=== PATIENT | female | born 1945 | race American Indian/Alaskan Native ===

== ENCOUNTER 2019-04-15 02:50 | Inpatient (IN) | payer MEDICAID, MEDICARE ==
[2019-04-15 03:23] LABS: Basophils # (Auto) 0.1 K/mm3 (0.0-0.1); Basophils % (Auto) 1.4 % (0.0-1.8); Eosinophils # (Auto) 0.1 K/mm3 (0.0-0.4); Eosinophils % (Auto) 1.6 % (0.0-4.3); Hematocrit 37.1 % (30.3-42.9); Hemoglobin 12.7 gm/dl (10.1-14.3); Lymphocytes # (Auto) 2.2 K/mm3 (1.2-5.4); Lymphocytes % (Auto) 40.8 % (13.4-35.0); Mean Corpuscular HGB Conc 34 % (30-34); Mean Corpuscular Volume 88 fl (79-97); Monocytes # (Auto) 0.3 K/mm3 (0.0-0.8); Monocytes % (Auto) 6.4 % (0.0-7.3); Platelet Count 226 K/mm3 (140-440); Red Cell Distribution Width 15.7 % (13.2-15.2)
--- NOTE | 2019-04-15 03:23 | Emergency Department Report ---
ED Dizziness HPI - General Chief Complaint: Dizziness Stated Complaint: DIZZY AND VOMITING Time Seen by Provider: 04/15/19 03:09 Source: patient Mode of arrival: Ambulatory Limitations: No Limitations - History of Present Illness Initial Comments: 74 yo F, hx HTN, presents to ED with complaint of dizziness. Pt states she went to bed at approx 10:30pm, feeling normal. States she awoke from sleep approx 1 hr ago in a sweat. Pt states when she turned over in bed, it felt as if the room was spinning and she felt nauseated. Pt states she attempted to walk to the bathroom and felt off-balance. Grandson brought pt to ER. Pt denies headache, chest pain, SOB, abdominal pain. Pt states prior to going to bed, she ate a [employer] sandwich then took her norvasc, ativan, and a pain pill for arthritis (cannot remember the name). Pt states she takes all 3 medications regularly. Pt states dizziness currently improved. Able to ambulate since arriving in ER. PCP: Apollo PANDA Complaint: dizziness -: hour(s) (1) Timing: awoke with symptoms Description: "room spinning", off-balance History of Same: Yes (4 yrs ago) History of Trauma: No Severity: moderate Improves With: nothing Worsens With: movement Associated Symptoms: diaphoresis. denies: chest pain, confusion, fever/chills, shortness of breath, syncope - Related Data Home Medications Medication Instructions Recorded Confirmed Last Taken Simvastatin 10 mg PO QDAY 06/28/13 06/28/13 Unknown Previous Rx's Medication Instructions Recorded Last Taken Type Hydrocodone Bit/Acetaminophen 1 each PO TID PRN #15 tablet 07/02/13 Unknown Rx [Lortab 5-500 Tablet] amLODIPine [Norvasc] 10 mg PO DAILY #30 tablet 07/02/13 Unknown Rx levoFLOXacin [Levaquin] 500 mg PO QDAY #5 tablet 07/02/13 Unknown Rx Azithromycin [Zithromax Z-TRAY] 250 mg PO DAILY #6 tablet 11/14/13 Unknown Rx Benzonatate [Tessalon Perle] 100 mg PO TID PRN #30 capsule 11/14/13 Unknown Rx Cyclobenzaprine [Flexeril] 10 mg PO TID PRN #15 tablet 11/14/13 Unknown Rx Allergies Allergy/AdvReac Type Severity Reaction Status Date / Time No Known Allergies Allergy Unverified 06/28/13 10:18 ED Review of Systems ROS: Stated complaint: DIZZY AND VOMITING Other details as noted in HPI Comment: All other systems reviewed and negative Constitutional: denies: chills, fever Respiratory: denies: shortness of breath Cardiovascular: denies: chest pain Gastrointestinal: nausea, vomiting. denies: abdominal pain Neurological: vertigo. denies: headache, weakness, numbness ED Past Medical Hx - Past Medical History Previous Medical History?: Yes Hx Hypertension: Yes Hx Arthritis: Yes Hx Seizures: No Hx Dementia: No Hx HIV: No Additional medical history: high chol, mass on kidney currently being worked up at [place] - Surgical History Past Surgical History?: Yes - Social History Smoking Status: Current Every Day Smoker Substance Use Type: None - Medications Home Medications: Home Medications Medication Instructions Recorded Confirmed Last Taken Type Simvastatin 10 mg PO QDAY 06/28/13 06/28/13 Unknown History Hydrocodone Bit/Acetaminophen 1 each PO TID PRN #15 tablet 07/02/13 Unknown Rx [Lortab 5-500 Tablet] amLODIPine [Norvasc] 10 mg PO DAILY #30 tablet 07/02/13 Unknown Rx levoFLOXacin [Levaquin] 500 mg PO QDAY #5 tablet 07/02/13 Unknown Rx Azithromycin [Zithromax Z-RTAY] 250 mg PO DAILY #6 tablet 11/14/13 Unknown Rx Benzonatate [Tessalon Perle] 100 mg PO TID PRN #30 capsule 11/14/13 Unknown Rx Cyclobenzaprine [Flexeril] 10 mg PO TID PRN #15 tablet 11/14/13 Unknown Rx ED Physical Exam - General Limitations: No Limitations General appearance: alert, in no apparent distress - Head Head exam: Present: atraumatic, normocephalic - Eye Eye exam: Present: normal appearance, PERRL, EOMI - ENT ENT exam: Present: mucous membranes moist - Neck Neck exam: Present: normal inspection, full ROM - Respiratory Respiratory exam: Present: normal lung sounds bilaterally. Absent: respiratory distress - Cardiovascular Cardiovascular Exam: Present: regular rate, normal rhythm - GI/Abdominal GI/Abdominal exam: Present: soft. Absent: distended, tenderness - Extremities Exam Extremities exam: Present: normal inspection - Neurological Exam Neurological exam: Present: alert, oriented X3, CN II-XII intact, normal gait, other ([id number] normal, NIHSS=0). Absent: motor sensory deficit - Psychiatric Psychiatric exam: Present: normal affect, normal mood - Skin Skin exam: Present: warm, dry, intact, normal color ED Course Vital Signs 04/15/19 04/15/19 04/15/19 02:53 04:27 04:30 Temperature 97.7 F Pulse Rate 75 66 67 Respiratory 18 11 L 17 Rate Blood Pressure 180/75 135/59 O2 Sat by Pulse 100 94 94 Oximetry 04/15/19 04/15/19 04/15/19 05:00 06:01 07:00 Temperature Pulse Rate 63 64 61 Respiratory 12 15 16 Rate Blood Pressure 132/58 124/41 128/54 O2 Sat by Pulse 96 99 97 Oximetry 04/15/19 04/15/19 04/15/19 07:21 07:30 07:41 Temperature Pulse Rate 63 67 67 Respiratory 16 13 16 Rate Blood Pressure 129/51 130/71 130/71 O2 Sat by Pulse 95 99 91 Oximetry 04/15/19 04/15/19 04/15/19 07:51 08:00 08:11 Temperature Pulse Rate 64 63 65 Respiratory 15 16 15 Rate Blood Pressure 148/65 139/66 139/66 O2 Sat by Pulse 97 93 92 Oximetry 04/15/19 04/15/19 04/15/19 08:21 08:30 08:41 Temperature Pulse Rate 69 65 64 Respiratory 16 15 16 Rate Blood Pressure 142/64 136/68 136/68 O2 Sat by Pulse 92 90 94 Oximetry 04/15/19 04/15/19 04/15/19 08:51 09:00 09:11 Temperature Pulse Rate 65 65 65 Respiratory 12 16 11 L Rate Blood Pressure 126/67 140/70 140/70 O2 Sat by Pulse 99 96 98 Oximetry 04/15/19 04/15/19 04/15/19 09:21 15:24 15:30 Temperature Pulse Rate 63 61 Respiratory 10 L 16 Rate Blood Pressure 136/71 139/60 O2 Sat by Pulse 97 Oximetry 04/15/19 04/15/19 04/15/19 16:00 19:46 19:49 Temperature 98.4 F Pulse Rate 62 65 Respiratory 18 Rate Blood Pressure 115/50 O2 Sat by Pulse 97 Oximetry - Reevaluation(s) Reevaluation #1: 04/15/19 05:50 Pt feeling much better at this time. Able to ambulate to bathroom with normal ga it. Reports only feeling dizzy now with head movement while laying on stretcher. ED Medical Decision Making - Lab Data Result diagrams: 04/15/19 03:06 04/15/19 03:06 - EKG Data -: EKG Interpreted by Me EKG shows normal: sinus rhythm, axis, QRS complexes, ST-T waves Rate: normal - EKG Data Interpretation: other (prolonged IN, lateral T wave inversion) - Radiology Data Radiology results: report reviewed, image reviewed - Medical Decision Making 74-year-old female presents to the ED with dizziness and feeling off balance. Patient states her symptoms have almost completely resolved. Patient now able to ambulate without difficulty. CT head is negative. Neuro exam is normal. NIHSS = 0. Patient initially hypertensive upon arrival, however BP is normalized without intervention. Patient found to have UTI on UA, otherwise re mainder of labs are unremarkable. EKG is normal. Will admit to hospitalist for further evaluation. - Differential Diagnosis TIA, benign positional vertigo, gastroenteritis, ACS Critical care attestation.: If time is entered above; I have spent that time in minutes in the direct care of this critically ill patient, excluding procedure time. ED Disposition Clinical Impression: Dizziness, UTI (urinary tract infection) Disposition: OP ADMIT IP TO THIS HOSP Is pt being admited?: Yes Condition: Stable Time of Disposition: 05:49
[2019-04-15 03:44] LABS: BUN/Creatinine Ratio 12; Blood Urea Nitrogen 11 mg/dL (7-17); Calcium 9.1 mg/dL (8.4-10.2); Hemolysis Index 15
[2019-04-15 04:03] LABS: INR 0.91 (0.87-1.13)
[2019-04-15 04:04] LABS: Partial Thromboplastin Time 29.2 Sec. (24.2-36.6)
[2019-04-15 04:56] LABS: Bilirubin,Urine NEG (Negative); Blood,Urine SM (Negative); Color,Urine Straw (Yellow); Mucus,Urine FEW /HPF; Protein,Urine <15 mg/dL mg/dL (Negative); Urobilinogen,Urine < 2.0 mg/dL (<2.0)
--- NOTE | 2019-04-15 05:47 | Cat Scan Report ---
CT head without contrast HISTORY: MAIN: WOKE UP DIZZY. TECHNIQUE: Axial imaging performed from the skull apex through the skull base without the use of con trast. All CT scans at this location are performed using CT dose reduction for ALARA by means of aut omated exposure control. COMPARISON: None FINDINGS: Parenchyma: No acute intracranial hemorrhage or parenchymal abnormality. Ventricles: There is mild diffuse brain atrophy with commensurate ventricular enlargement which is l ikely age appropriate. Soft tissues: Soft tissues including the orbits appear normal. Bones: No acute osseous abnormality. Sinuses: Sinuses and mastoid air cells are clear. IMPRESSION: No acute abnormality. Signer Name: Aman Sibley MD Signed: 04/15/2019 5:43 AM Workstation Name: [id number]
[2019-04-15] MEDS ORDERED: ROCEPHIN/NS 1 GM/50 ML 1 GM/50 ML BAG IV ONE (05:48)
[2019-04-15] MEDS ORDERED: DULCOLAX PR PRN (06:03)
[2019-04-15] MEDS ORDERED: SODIUM CHLORIDE FLUSH SYRINGE 10 ML IV PRN (06:03)
[2019-04-15] MEDS ORDERED: MILK OF MAGNESIA PO PRN (06:03)
[2019-04-15] MEDS ORDERED: TYLENOL PO PRN (06:03)
[2019-04-15] MEDS ORDERED: ZOFRAN IV PRN (06:03)
[2019-04-15] MEDS ORDERED: APRESOLINE IV PRN ×2 (06:06→06:11)
--- NOTE | 2019-04-15 06:06 | History and Physical Report ---
History of Present Illness Date of examination: 04/15/19 History of present illness: 74-year-old little history of hypertension, hyperlipidemia, mass on kidney which is being worked up iat [place] comes to the emergency room complaining of dizziness. Patient stated that she woke up from sleep feeling dizzy, diaphoretic, hot. She tried to ambulate but with difficulty. Complaining of nausea vomiting. She took her blood pressure medicine in the afternoon instead of the morning eview Of Systems: Constitutional: no weight loss, fever, chills Ears, eyes, nose, mouth and throat: no nasal congestion, no nasal discharge, no sinus pressure, blurry vision, diplopia Neck: No neck pain or rigidity. Cardiovascular: No palpitations, chest pain Respiratory: No shortness of breath, cough Gastrointestinal: No hematochezia, abdominal pain Genitourinary : no dysuria, frequency , hematuria Musculoskeletal: no muscle ache , joint pain Integumentary: no rash, no pruritis Neurological: no parathesias, focal weakness Endocrine: no cold or heat intolerance, no polyuria or polydipsia Hematologic/Lymphatic: no easy bruising, no easy bleeding, no gland swelling Allergic/Immunologic: no urticaria, no angioedema. PAST MEDICAL HISTORY:hypertension, hyperlipidemia, mass on kidney PAST SURGICAL HISTORY:None FAMILY HISTORY:hypertension, diabetes SOCIAL HISTORY: Denies drugs, alcohol, +tobacco Medications and Allergies Allergies Allergy/AdvReac Type Severity Reaction Status Date / Time No Known Allergies Allergy Unverified 06/28/13 10:18 Home Medications Medication Instructions Recorded Confirmed Last Taken Type Simvastatin 10 mg PO QDAY 06/28/13 06/28/13 Unknown History Hydrocodone Bit/Acetaminophen 1 each PO TID PRN #15 tablet 07/02/13 Unknown Rx [Lortab 5-500 Tablet] amLODIPine [Norvasc] 10 mg PO DAILY #30 tablet 07/02/13 Unknown Rx levoFLOXacin [Levaquin] 500 mg PO QDAY #5 tablet 07/02/13 Unknown Rx Azithromycin [Zithromax Z-TRAY] 250 mg PO DAILY #6 tablet 11/14/13 Unknown Rx Benzonatate [Tessalon Perle] 100 mg PO TID PRN #30 capsule 11/14/13 Unknown Rx Cyclobenzaprine [Flexeril] 10 mg PO TID PRN #15 tablet 11/14/13 Unknown Rx Active Meds: Active Medications Ceftriaxone Sodium (Rocephin/Ns 1 Gm/50 Ml) 1 gm in 50 mls @ 100 mls/hr IV ONCE ONE; Protocol Stop: 04/15/19 06:17 Exam - Physical Exam Narrative exam: General Apperance: The patient sitting in bed no acute distress HEENT: Normocephalic, atraumatic. Pupils equally round and reactive to light, extraocular movement intact, and no sclericterus or JVD or thyromegaly or nodule. Neck supple, no carotid bruit, mucous membranes moist, no exudate or erythema Heart: S1-S2, regular is rhythm Lungs: Clear to auscultation bilaterally, breathing comfortable Abdomen: Positive bowel sounds, soft, nontender, nondistended, no organomegaly Extremities: No edema cyanosis clubbing Skin: no rash, nodule, warm and dry Neuro:CN 2 -12 intact, motor/sensory intact, speech is fluent - Constitutional Vitals: Temp Pulse Resp BP Pulse Ox 97.7 F 67 17 135/59 94 04/15/19 02:53 04/15/19 04:30 04/15/19 04:30 04/15/19 04:30 04/15/19 04:30 Results - Labs CBC & Chem 7: 04/15/19 03:06 04/15/19 03:06 Labs: Abnormal lab results 04/15/19 04/15/19 04/15/19 Range/Units 03:06 03:06 03:06 RDW 15.7 H (13.2-15.2) % Lymph % (Auto) 40.8 H (13.4-35.0) % PT 12.0 L (12.2-14.9) Sec. Potassium 3.3 L (3.6-5.0) mmol/L Carbon Dioxide 33 H (22-30) mmol/L Glucose 114 H (65-100) mg/dL Urine WBC (Auto) (0.0-6.0) /HPF 04/15/19 Range/Units Unknown RDW (13.2-15.2) % Lymph % (Auto) (13.4-35.0) % PT (12.2-14.9) Sec. Potassium (3.6-5.0) mmol/L Carbon Dioxide (22-30) mmol/L Glucose (65-100) mg/dL Urine WBC (Auto) 16.0 H (0.0-6.0) /HPF - Imaging and Cardiology CT Scan - head: report reviewed Assessment and Plan Assessment TIA versus hypertensive urgency Hyperlipidemia admitted to medicine Mass on kidney Plan Obtain MRI of the head and neck, echo Start aspirin, statin IV Hydralazine for blood pressure control Health Information Specialist neurology, PT and OT DVT prophylaxis
[2019-04-15] MEDS ORDERED: FLEXERIL PO PRN (09:19)
[2019-04-15] MEDS ORDERED: NON-FORMULARY (Hydrocodone Bit/Acetaminophen [Lortab 5-500 Tablet] 1 EACH) PO PRN (09:19)
--- NOTE | 2019-04-15 09:21 | Event Note ---
Date: 04/15/19 Patient seen and examined Admitted with stroke protocol, will follow MRI brain, 2d echo and carotid doppler pending neuro eval, PT/OT cont current mx and plan, resume home meds
[2019-04-15] MEDS ORDERED: NORCO 5/325 PO PRN (09:46)
[2019-04-15] MEDS ORDERED: K-DUR PO ONE (12:00)
--- NOTE | 2019-04-15 13:00 | Progress Note ---
Subjective Date of service: 04/15/19 Interval history: plan MRI and EEG suspect vestibulitis doubt meniere's Disease neuro exam is normal no nystagmus at this time and good speech and swallowing spoke to family Objective - Vital Sign Vital Signs - 12hr 04/15/19 04/15/19 04/15/19 02:53 04:27 04:30 Temperature 97.7 F Pulse Rate 75 66 67 Respiratory 18 11 L 17 Rate Blood Pressure 180/75 135/59 O2 Sat by Pulse 100 94 94 Oximetry 04/15/19 04/15/19 04/15/19 05:00 06:01 07:00 Temperature Pulse Rate 63 64 61 Respiratory 12 15 16 Rate Blood Pressure 132/58 124/41 128/54 O2 Sat by Pulse 96 99 97 Oximetry - Laboratory Findings CBC and BMP: 04/15/19 03:06 04/15/19 03:06 Abnormal Lab Findings: Abnormal Labs 04/15/19 04/15/19 04/15/19 03:06 03:06 03:06 RDW 15.7 H Lymph % (Auto) 40.8 H PT 12.0 L Potassium 3.3 L Carbon Dioxide 33 H Glucose 114 H Urine WBC (Auto) 04/15/19 Unknown RDW Lymph % (Auto) PT Potassium Carbon Dioxide Glucose Urine WBC (Auto) 16.0 H
[2019-04-15] MEDS: LOVENOX SUB-Q SCH (15:23)
[2019-04-15] MEDS: NORVASC PO SCH (15:24)
[2019-04-15] MEDS: ASPIRIN PO SCH (15:25)
[2019-04-15] MEDS ORDERED: PRAVACHOL PO SCH (22:00)
[2019-04-16 06:12] LABS: Chol/HDL Ratio 6.9 %
[2019-04-16] MEDS: LOVENOX SUB-Q SCH (09:28)
[2019-04-16] MEDS: NORVASC PO SCH (09:28)
[2019-04-16] MEDS: ASPIRIN PO SCH (09:29)
[2019-04-16] MEDS ORDERED: LEVAQUIN PO SCH (10:00)
--- NOTE | 2019-04-16 13:07 | Magnetic Resonance Report ---
MRI BRAIN WITHOUT CONTRAST INDICATION / CLINICAL INFORMATION: Stroke, dizziness.. TECHNIQUE: Multiplanar, multisequence MR images of the brain were obtained. COMPARISON: None available. FINDINGS: BRAIN / INTRACRANIAL CONTENTS: On the FLAIR sequence, there are a few scattered small hyperintense fo ci involving the cerebral white matter most consistent with mild age-appropriate microvascular angiop athy. The diffusion imaging reveals no evidence of acute infarction. There is mild cerebral atrophy. The ventricular system is correspondingly appropriate in size and configuration. CRANIOCERVICAL JUNCTION: No significant abnormality. VASCULAR FLOW-VOIDS: No significant abnormality. ORBITS: No significant abnormality of visualized orbits. SINUSES / MASTOIDS: No significant abnormality of the visualized paranasal sinuses or mastoid air jackelyn ls. ADDITIONAL FINDINGS: None. IMPRESSION: 1. There is mild age-appropriate microvascular angiopathy without evidence of recent infarction. Signer Name: Hood Cheng MD Signed: 04/16/2019 1:03 PM Workstation Name: [id number]
--- NOTE | 2019-04-16 13:15 | Magnetic Resonance Report ---
MRA head without contrast CLINICAL HISTORY: Cerebrovascular accident, dizziness. FINDINGS: No previous exams available for comparison. The motion significantly degrades the image nancy lity at. However, there is no clear evidence of significant focal stenosis involving the distal inter nal carotid arteries or vertebrobasilar system. Flow is seen at within the proximal cerebral arteries and adjacent of branches. The findings are indicative of infundibula involving upper, arteries exacerbated by the degree of mot ion. However, this finding is more prominent on the left measuring 2-3 mm extends more laterally on t he right and smaller periophthalmic aneurysms may not be excluded. Otherwise, there is no MRA evidenc e of intracranial aneurysm. IMPRESSION: There is no significant focal stenosis involving the visualized intracranial vessels.. The motion degrades image quality and the findings may reflect infundibula of the ophthalmic arteries exacerbated by the artifact. However, small periophthalmic aneurysms may not be excluded and, if cli nical questions remain, CTA of the head may be performed to further define at this region. Signer Name: Hood Cheng MD Signed: 04/16/2019 1:11 PM Workstation Name: [id number]
[2019-04-16] MEDS ORDERED: ANTIVERT PO PRN (14:39)
--- NOTE | 2019-04-16 15:37 | Discharge Summary ---
Providers - Providers Date of Admission: 04/15/19 06:03 Date of discharge: 04/16/19 Attending physician: SATISH CUNNINGHAM 04/15/19 Consult to Physician [CONS] Routine Comment: Consulting Provider: NELLY CUELLAR Physician Instructions: Reason For Exam: tia 04/15/19 06:03 Occupational Therapy Evaluate and Treat [CONS] Routine Comment: Reason For Exam: Neuro deficits Physical Therapy Evaluation and Treat [CONS] Routine Comment: Reason For Exam: Neuro deficits Primary care physician: YOUSIF MARIE Hospitalization Condition: Stable Hospital course: Discharge diagnosis: Dizziness, likely BPPV vs vestibulitis - placed on meclizine, outpt follow up TIA - ruled out Hypertensive urgency, stable on d/c Hyperlipidemia, on statin Mass on kidney, follows at [place] Disposition: DC-01 TO HOME OR SELFCARE Time spent for discharge: 34 minutes Core Measure Documentation - Palliative Care Palliative Care/ Comfort Measures: Not Applicable - Core Measures Any of the following diagnoses?: none Exam - Constitutional Vitals: Temp Pulse Resp BP Pulse Ox 97.9 F 66 18 142/71 94 04/16/19 11:31 04/16/19 11:31 04/16/19 11:31 04/16/19 11:31 04/16/19 11:31 General appearance: Present: no acute distress, well-nourished - EENT Eyes: Present: PERRL ENT: hearing intact, clear oral mucosa - Neck Neck: Present: supple, normal ROM - Respiratory Respiratory effort: normal Respiratory: bilateral: CTA - Cardiovascular Heart Sounds: Present: S1 & S2. Absent: rub, click - Extremities Extremities: pulses symmetrical, No edema Peripheral Pulses: within normal limits - Abdominal General gastrointestinal: Present: soft, non-tender, non-distended, normal bowel sounds - Integumentary Integumentary: Present: clear, warm, dry - Musculoskeletal Musculoskeletal: gait normal, strength equal bilaterally - Psychiatric Psychiatric: appropriate mood/affect, intact judgment & insight - Neurologic Neurologic: CNII-XII intact, moves all extremities Plan Activity: fall precautions Weight Bearing Status: Non-Weight Bearing Diet: low fat, low salt Follow up with: RODRICK العلي MD [Staff Physician] - 3-5 Days Prescriptions: Meclizine [Antivert] 25 mg PO Q8H PRN #20 tablet PRN Reason: Vertigo Aspirin EC [Halfprin EC] 81 mg PO QDAY #30 tablet. levoFLOXacin [Levaquin TAB] 500 mg PO QDAY #5 tablet
[2019-04-16 15:41] VITALS: BP 142/67
== END 2019-04-16 19:20 | disposition home or self-care (01) | DRG 149 ==
LOC: ED 02:50 → SUATTDRO 02:50 → 4A 06:03
PROVIDERS: ADMIT Internal Medicine; ATTEND Internal Medicine
DX: H81.10 Benign paroxysmal vertigo, unspecified ear (principal); N39.0 Urinary tract infection, site not specified; I16.0 Hypertensive urgency; E78.5 Hyperlipidemia, unspecified; N28.89 Other specified disorders of kidney and ureter; H83.09 Labyrinthitis, unspecified ear; I10 Essential (primary) hypertension; M19.90 Unspecified osteoarthritis, unspecified site; F17.200 Nicotine dependence, unspecified, uncomplicated; Z82.49 Family history of ischemic heart disease and other diseases of the circulatory system; Z83.3 Family history of diabetes mellitus; Z79.899 Other long term (current) drug therapy
CPT/HCPCS: 36415; 70450; 70544; 70551; 80048; 80061; 81001; 82962; 83036; 84484; 85025; 85610; 85730; 87086; 93005; 93010; 93306; 96365; 96375; G0378; A9270-GY; J0696; J1650; J2405